=== PATIENT | female | born 1970 | race Caucasian/White ===

== ENCOUNTER 2017-02-14 09:24 | Outpatient (CLI) | payer OTHER ==
[2014-11-16 10:39] VITALS: BP 123/77
[2017-02-14 10:12] LABS: eGFR (African) > 60; eGFR (Non-African) > 60
== END 2017-02-14 09:25 ==
LOC: LAB 09:24
PROVIDERS: ATTEND Family Medicine
DX: Z00.00 Encounter for general adult medical examination without abnormal findings (principal)
CPT/HCPCS: 36415; 80053; 80061